=== PATIENT | female | born 1990 | race Caucasian/White ===

== ENCOUNTER 2018-06-19 18:17 | Emergency (ER) | payer OTHER ==
[2018-06-19 18:31] VITALS: BP 132/70; PULSE 86; TEMP 98; BMI 22.3
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
== END 2018-06-19 22:00 | disposition home or self-care (01) ==
LOC: JERFT 18:17
DX: S13.4XXA Sprain of ligaments of cervical spine, initial encounter (principal); M62.830 Muscle spasm of back; V43.62XA Car passenger injured in collision with other type car in traffic accident, initial encounter; Y92.488 Other paved roadways as the place of occurrence of the external cause; Y93.89 Activity, other specified; Y99.8 Other external cause status
CPT/HCPCS: 72050-TC-FY; 72100-TC-FY; 99281-25

== ENCOUNTER 2019-08-21 07:32 | Emergency (ER) | payer OTHER ==
[2019-08-21 07:44] VITALS: TEMP 97.8; BMI 23.0
--- NOTE | 2019-08-21 08:30 | PDOC ---
History of Present Illness - General Chief Complaint: Pain, Acute Stated Complaint: SHARP ABDOMINAL PAIN Time Seen by Provider: 08/21/19 08:30 - History of Present Illness Initial Comments: HPI: 29yo F with PMH of ovarian cysts presenting with lower abdominal pain since 7am. The pain is described as "sharp" and rated 15/10 when it started, but the pain has since lessened to 2/10. Certain positions made the pain worse. She has felt pain like this before, namely two years ago when she was diagnosed with ovarian cysts. No nausea or vomiting. Last bowel movement was a normal formed brown stool yesterday. LMP was one week ago. Denies vaginal discharge or genital lesions. Never had surgery before. No fevers or chills. PCP: Dr. Edwards identifier horse: Dr. Barrera ROS: Constitutional: no fever, no chills HEENT: no throat pain, no dysphagia Cardiovascular: no chest pain, no palpitations Respiratory: no cough, no shortness of breath Gastrointestinal: +abdominal pain, no nausea Genitourinary: no dysuria, no hematuria Musculoskeletal: no myalgia, no arthralgia Skin: no rash, no itching Neurologic: no headache, no weakness PE: General: Awake, alert, and fully oriented, in no acute distress Head: No signs of trauma Eyes: EOMI, sclera anicteric ENT: Moist mucus membranes Neck: Normal ROM, supple Lungs: Lungs clear, Normal breath sounds Cardio: Regular rhythm, S1 and S2 present Abdomen: Mild tenderness to RLQ and suprapubic area. Soft, nondistended. + guarding, +rebound, no masses. No CVA tenderness Extremities: Normal range of motion, Distal pulses present SKIN: Warm, Dry, normal turgor Neurologic: Cranial nerves II through XII grossly intact. Normal speech Pelvic: External genitalia without erythema, exudate or discharge. Vaginal vault is without discharge. Cervix is of normal color without lesion. The os is closed. There is no bleeding noted. Uterus is noted to be of appropriate size and nontender. No cervical motion tenderness is seen. No masses are palpated. The adnexa are without masses or tenderness. ED Course/MDM: DDX including but not limited to ovarian cyst, ovarian torsion, tuboovarian abscess, appendicitis, UTI VSS Labs TVUS Ofirmev 08/21/19 08:30 CBC WBC 10.6 K/mm3 (4.0-10.0) H 08/21/19 09:45 RBC 4.35 M/mm3 (3.60-5.2) 08/21/19 09:45 Hgb 13.2 GM/dL (10.7-15.3) 08/21/19 09:45 Hct 39.2 % (32.4-45.2) 08/21/19 09:45 MCV 90.2 fl (80-96) 08/21/19 09:45 MCH 30.3 pg (25.7-33.7) 08/21/19 09:45 MCHC 33.6 g/dl (32.0-36.0) 08/21/19 09:45 RDW 12.3 % (11.6-15.6) 08/21/19 09:45 Plt Count 298 K/MM3 (134-434) 08/21/19 09:45 MPV 8.1 fl (7.5-11.1) 08/21/19 09:45 Absolute Neuts (auto) 8.6 K/mm3 (1.5-8.0) H 08/21/19 09:45 Neutrophils % 80.8 % (42.8-82.8) 08/21/19 09:45 Lymphocytes % 14.5 % (8-40) 08/21/19 09:45 Monocytes % 3.3 % (3.8-10.2) L 08/21/19 09:45 Eosinophils % 0.6 % (0-4.5) 08/21/19 09:45 Basophils % 0.8 % (0-2.0) 08/21/19 09:45 Nucleated RBC % 0 % (0-0) 08/21/19 09:45 Mild leukocytosis Pending chemistry Pending TVUS 08/21/19 10:33 TVUS as read by radiology: "EXAM#: TYPE/EXAM: RESULT: [id number] US/TRANSVAGINAL ULTRASOUND US HISTORY PROVIDED: Right lower quadrant pain. Real time examination of the pelvis utilizing both the transabdominal and transvaginal probes demonstrates the following: The uterus is normal in size measuring 7.9 x 3.9 x 3.6 cm. No uterine masses are seen. A normal appearing endometrium of 6 mm thickness is identified. The ovaries are normal in size and texture with arterial and venous flow documented to both ovaries. There is a large complex cyst within the right ovary measuring 4.9 x 3.7 x 2.3 cm. This cyst is most probably hemorrhagic in nature. There is no evidence of left adnexal masses. There is a trace amount of free fluid within the cul- de-sac. IMPRESSION: Complex right ovarian cyst and trace free pelvic fluid. Reported By: Trevon Escobar MD 08/21/19 1138 " 08/21/19 11:49 Dr. Gamez discussed case with Dr. Banks who recommended outpatient followup. Pain is controlled [id number] tylenol and motrin for pain at home Return precautions Stable for discharge 08/21/19 12:10 Past History - Past Medical History Allergies/Adverse Reactions: Allergies Allergy/AdvReac Type Severity Reaction Status Date / Time latex AdvReac Verified 06/19/18 18:31 bandaids Allergy Mild Rash Uncoded 08/21/19 10:14 Home Medications: Ambulatory Orders Acetaminophen [Tylenol -] 1,000 mg PO Q6H PRN #60 tablet 08/21/19 Ibuprofen [Motrin -] 400 mg PO Q6H PRN #60 tablet 08/21/19 COPD: No Other medical history: ovarian cysts - Psycho Social/Smoking Cessation Hx Smoking History: Never smoked Hx Alcohol Use: No Drug/Substance Use Hx: Yes (previously) *Physical Exam - Vital Signs Last Vital Signs Temp Pulse Resp BP Pulse Ox 97.8 F 92 H 16 123/62 100 08/21/19 07:41 08/21/19 07:41 08/21/19 07:41 08/21/19 07:41 08/21/19 07:41 ED Treatment Course - LABORATORY CBC & Chemistry Diagram: 08/21/19 09:45 08/21/19 09:45 Discharge - Discharge Information Problems reviewed: Yes Clinical Impression/Diagnosis: Ovarian cyst Qualifiers: Laterality: right Qualified Code(s): N83.201 - Unspecified ovarian cyst, right side Condition: Improved Disposition: HOME - Additional Discharge Information Prescriptions: Acetaminophen [Tylenol -] 1,000 mg PO Q6H PRN #60 tablet PRN Reason: Pain Ibuprofen [Motrin -] 400 mg PO Q6H PRN #60 tablet PRN Reason: Pain - Follow up/Referral - Patient Discharge Instructions Patient Printed Discharge Instructions: DI for Ovarian Cyst Additional Instructions: You came into the emergency department for abdominal pain. Labs did not indicate acute pathology. US imaging showed a large ovarian cyst. We consulted with our on-call computer analyst supervisor who recommends outpatient followup. Follow-up with your marine electronics technician within 72 hours to discuss this ED visit and to further evaluate your symptoms. Call today or tomorrow morning and make an appointment. Your workup is not complete until you do so. You can take [id number] tylenol or motrin for pain. Follow the instructions on the medication bottle. Immediate medical attention is required if you develop: worsening pain, high fevers, persistent nausea, vomiting, or any new or concerning symptoms. If you think you are having an emergency, call for emergency medical services or present to the emergency department right away. - Post Discharge Activity Work/Back to School Note: Back to Work
[2019-08-21] MEDS ORDERED: ACETAMINOPHEN 1000 MG/100 ML VIAL (NON FORMULARY) IVPB ONE (08:51)
[2019-08-21] MEDS ORDERED: ACETAMINOPHEN INJECTION 100 ML IVPB ONE (09:21)
--- NOTE | 2019-08-21 09:30 | PDOC ---
Attending Attestation - Resident Resident Name: Padmaja Enciso - ED Attending Attestation I have performed the following: I have examined & evaluated the patient, The case was reviewed & discussed with the resident, I agree w/resident's findings & plan, Exceptions are as noted - HPI HPI: 08/21/19 10:43 29 years old with past medical history significant for ovarian cyst presents to the ED with sudden onset right lower quadrant pain this morning originally and 9 out of 10 sharp now about a 2 out of 10 slightly diffuse over the lower abdomen Symptoms were sudden in onset now mild to moderate improved with time - Physicial Exam PE: 08/21/19 10:43 Vitals: Triage Vital signs reviewed General Appearance: No acute distress, well nourished well developed, Head: Atraumatic, Cardiac: Regular rate and rhythym, no murmurs, no rubs, no gallops, Lungs: Clear to auscultation bilateral, good air movement bilaterally, Abdomen: Soft, non distended, normal bowel sounds, mild right lower quadrant tenderness to palpation, no rebound no guarding Extremities: Full range of motion to all extremities, no cyanosis, clubbing, or edema Skin: Warm and dry, no rashes or lesions, no rash, no petechiae Psych: Normal mood, normal affect - Medical Decision Making 08/21/19 Sudden onset right lower quadrant pain now resolving no fever no chills no prodrome of abdominal discomfort prior to this ultrasound demonstrates right hemorrhagic ovarian cyst this is known to patient measurement 4.9 cm Case discussed with on-call CONTROL CABINET ASSEMBLER no emergent intervention necessary patient will follow-up with her CONTROL CABINET ASSEMBLER this week. Very strict torsion precautions discussed at length with patient Findings, the need for follow-up and strict return instructions discussed with patient
[2019-08-21 10:13] LABS: BASO % 0.8 % (0-2.0); EOS % 0.6 % (0-4.5); HEMATOCRIT 39.2 % (32.4-45.2); HEMOGLOBIN 13.2 GM/dL (10.7-15.3); LYMPH % 14.5 % (8-40); MCH 30.3 pg (25.7-33.7); MCHC 33.6 g/dl (32.0-36.0); MEAN CELL VOLUME 90.2 fl (80-96); MEAN PLT VOLUME 8.1 fl (7.5-11.1); MONO % 3.3 % (3.8-10.2); NEUT % 80.8 % (42.8-82.8); PLATELET COUNT 298 K/MM3 (134-434); RBC 4.35 M/mm3 (3.60-5.2); RDW 12.3 % (11.6-15.6); WHITE BLOOD COUNT 10.6 K/mm3 (4.0-10.0)
[2019-08-21] MEDS ORDERED: SODIUM CHLORIDE 1,000 ML IV STA (10:41)
[2019-08-21 10:54] LABS: ALBUMIN 3.8 g/dl (3.4-5.0); BILIRUBIN,TOTAL 0.5 mg/dL (0.2-1); BLOOD UREA NITROGEN 8.1 mg/dL (7-18); CALCIUM 8.9 mg/dL (8.5-10.1); CREATININE 0.5 mg/dL (0.55-1.3); POTASSIUM 4.3 mmol/L (3.5-5.1); TOT PROT 7.5 g/dl (6.4-8.2)
[2019-08-21] MEDS ORDERED: KETOROLAC TROMETHAMINE 30 MG/1 ML VIAL IVPUSH ONE (11:48)
[2019-08-21 12:11] LABS: PH,URINE 5.5 (5.0-8.0); URINE APPEARANCE CLEAR; URINE BILIRUBIN NEGATIVE (NEGATIVE); URINE COLOR YELLOW; URINE GLUCOSE (UA) NEGATIVE (NEGATIVE); URINE KETONE NEGATIVE (NEGATIVE); URINE LEUK ESTERASE NEGATIVE (NEGATIVE); URINE NITRITE NEGATIVE (NEGATIVE); URINE PROTEIN NEGATIVE (NEGATIVE)
[2019-08-21] MEDS ORDERED: KETOROLAC TROMETHAMINE 30 MG/1 ML VIAL ONE (12:30)
[2019-08-21 12:53] VITALS: BP 109/68; PULSE 87
== END 2019-08-21 12:45 | disposition home or self-care (01) ==
LOC: JER 07:32
PROC: 3E0337Z Introduction of Electrolytic and Water Balance Substance into Peripheral Vein, Percutaneous Approach (ICD-10-PCS; principal; 2019-08-21)
PROC: 3E033NZ Introduction of Analgesics, Hypnotics, Sedatives into Peripheral Vein, Percutaneous Approach (ICD-10-PCS; 2019-08-21)
PROC: 3E0333Z Introduction of Anti-inflammatory into Peripheral Vein, Percutaneous Approach (ICD-10-PCS; 2019-08-21)
DX: N83.201 Unspecified ovarian cyst, right side (principal)
CPT/HCPCS: 36415; 76830-TC; 80053; 81003; 84703; 85025; 87086; 96361; 96374; 96375; 99283-25; J0131; J7030

== ENCOUNTER 2020-08-21 21:22 | Emergency (ER) | payer OTHER ==
[2020-08-21 21:31] VITALS: BP 119/79; PULSE 87; TEMP 100.4; BMI 24.7
[2020-08-21] MEDS ORDERED: ONDANSETRON *ODT* 4 MG TABLET ONE (22:06)
[2020-08-21] MEDS ORDERED: ONDANSETRON *ODT* 4 MG TABLET SL ONE (22:06)
[2020-08-21] MEDS ORDERED: IBUPROFEN 600 MG TABLET (FP) PO ONE ×2 (22:07→22:13)
[2020-08-21 22:50] LABS: THROAT:GRP A STREP Negative (Negative)
== END 2020-08-21 23:03 | disposition home or self-care (01) ==
LOC: JER 21:22
DX: Z11.59 Encounter for screening for other viral diseases (principal)
CPT/HCPCS: 87070; 87880; 99284-25; C9803; Q0162; U0003

== ENCOUNTER 2020-09-13 22:59 | Emergency (ER) | payer OTHER ==
[2020-09-13 23:10] VITALS: BP 131/64; PULSE 88; TEMP 98; BMI 24.7
[2020-09-13] MEDS ORDERED: ONDANSETRON *ODT* 4 MG TABLET SL ONE (23:43)
== END 2020-09-13 23:58 | disposition home or self-care (01) ==
LOC: JER 22:59
DX: U07.1 COVID-19 (principal); R19.7 Diarrhea, unspecified; R11.0 Nausea
CPT/HCPCS: 99283-25; 99284-25

== ENCOUNTER 2021-07-22 20:16 | Emergency (ER) | payer OTHER ==
[2021-07-22 20:45] VITALS: BP 130/86; PULSE 91; TEMP 97.5; BMI 24.7
[2021-07-22] MEDS ORDERED: KETOROLAC TROMETHAMINE 30 MG/1 ML VIAL IM ONE (21:34)
[2021-07-22] MEDS ORDERED: CYCLOBENZAPRINE HCL 10 MG TABLET (FP) PO ONE (21:35)
[2021-07-22] MEDS ORDERED: KETOROLAC TROMETHAMINE 30 MG/1 ML VIAL ONE (21:38)
[2021-07-22] MEDS ORDERED: CYCLOBENZAPRINE HCL 10 MG TABLET (FP) ONE (21:39)
== END 2021-07-22 22:22 | disposition home or self-care (01) ==
LOC: JERFT 20:16
PROC: 3E0233Z Introduction of Anti-inflammatory into Muscle, Percutaneous Approach (ICD-10-PCS; principal; 2021-07-22)
DX: M62.838 Other muscle spasm (principal)
CPT/HCPCS: 99284-25

== ENCOUNTER 2023-07-28 09:11 | Emergency (ER) | payer OTHER ==
[2023-07-28 09:20] VITALS: BP 123/79; PULSE 84; RESP 18; TEMP 98.6; BMI 24.7
== END 2023-07-28 11:22 | disposition home or self-care (01) ==
LOC: JERFT 09:11
DX: S46.911A Strain of unspecified muscle, fascia and tendon at shoulder and upper arm level, right arm, initial encounter (principal); X50.9XXA Other and unspecified overexertion or strenuous movements or postures, initial encounter; Y92.9 Unspecified place or not applicable
CPT/HCPCS: 99283-25